=== PATIENT | male | born 1990 | race Two or more races ===

== ENCOUNTER → 2019-11-02 | Emergency (ER) | payer BC, OTHER ==
[~2019-11-02] VITALS: Ht 177.8 cm; Wt 85.7 kg
[~2019-11-02] MED LIST: TETANUS-DIPTH-ACEL PERTUSSIS 0.5ML SYR Tdap IM ONE; cefTRIAXone SOD 1,000 MG VL IM ONE
[2019-11-02 17:12] VITALS: BP 127/82
== END | disposition home or self-care (01) ==
LOC: ER 17:00
DX: S61.431A Puncture wound without foreign body of right hand, initial encounter (principal); L03.113 Cellulitis of right upper limb; W45.8XXA Other foreign body or object entering through skin, initial encounter; Y93.89 Activity, other specified; Y92.89 Other specified places as the place of occurrence of the external cause; Y99.8 Other external cause status
CPT/HCPCS: 73130; 90471; 90715; 96372; 99284; J0696